=== PATIENT | male | born 1975 | race Caucasian/White ===

== ENCOUNTER 2019-11-03 19:09 | Emergency (ER) | payer SELFPAY ==
[~2019-11-03] VITALS: Ht 172.7 cm; Wt 80.0 kg
[2019-11-03 20:21] VITALS: BP 135/85
== END 2019-11-03 20:20 | disposition home or self-care (01) ==
LOC: EMS 19:10
DX: K52.9 Noninfective gastroenteritis and colitis, unspecified (principal); R50.9 Fever, unspecified

== ENCOUNTER 2022-12-19 01:22 | Emergency (ER) | payer MEDICAID ==
[~2022-12-19] VITALS: Ht 160 cm; Wt 84.0 kg
[2022-12-19 01:45] LABS: GLUCOMETER DEV NAME(LOC) ERT.5; GLUCOSE,POINT OF CARE 236 MG/DL (70-110)
[2022-12-19 02:34] VITALS: BP 124/88
[2022-12-19] MEDS ORDERED: AMOXICILLIN TRIHYDRATE 250 MG CAPSULE PO ONE (03:00)
[2022-12-19] MEDS ORDERED: HYDROCODONE/ACETAMINOPHEN 5-325 MG TABLET PO ONE (03:00)
[2022-12-19] MEDS ORDERED: IBUPROFEN 800 MG TABLET PO ONE (03:00)
== END 2022-12-19 03:11 | disposition home or self-care (01) ==
LOC: EMS 01:27
DX: K08.89 Other specified disorders of teeth and supporting structures (principal); E11.9 Type 2 diabetes mellitus without complications; E78.00 Pure hypercholesterolemia, unspecified
CPT/HCPCS: 82962; 99283